=== PATIENT | female | born 1995 | race Caucasian/White ===

== ENCOUNTER 2018-03-29 19:45 | Observation (INO) ==
--- NOTE | 2018-03-29 21:58 | ED ---
HPI General Chief Complaint: Respiratory Symptoms Stated Complaint: respiratory Time Seen by Provider: 03/29/18 21:47 Source: patient Mode of arrival: ambulatory Limitations: no limitations History of Present Illness 23-year-old female complains of chest pain and shortness of breath. Patient states that she has intermittent shortness of breath for the past several weeks. Patient started having across anterior chest pressure with radiation to the neck today. Patient states that she has intermittent mild coughing congestion today. Patient denies any fever chills. Patient denies any history of COPD or asthma. Patient denies a history of CAD. Patient denies history hypertension, diabetes, hyperlipidemia. Patient is a non-smoker. Patient denies any illicit drug abuse. Patient is not on any control pills. Patient denies a history of DVT or PE. MD Complaint: shortness of breath and chest pain Onset (ago): day(s) Severity: moderate Consistency/Duration: intermittent Relieving factors: nothing Exacerbating factors: nothing Associated symptoms: chest pain Treatment prior to arrival: none Related Data Home Medications Medication Instructions Recorded Confirmed No Known Home Medications 03/29/18 03/29/18 Allergies Allergy/AdvReac Type Severity Reaction Status Date / Time strawberries Allergy Severe rash Uncoded 03/29/18 19:58 Review of Systems ROS: all other systems reviewed are negative PMFSH History History Provided By: Patient Medical History Medical History Medical history unknown (Acute) Surgical History Surgical History No history of previous surgery (Acute) Social History Social History Substance History: No History of Abuse Smoking Status: Never smoker How Often Do You Have a Drink Containing Alcohol: Never Recent Travel in [facility] within the Last 8 Weeks: No Recent Out of Country Travel within the Last 8 Weeks: No Exam Narrative Exam Narrative: GENERAL: Well-nourished, well-developed patient. SKIN: Focused skin assessment warm/dry. HEAD: Normocephalic. EYES: No scleral icterus. No injection or drainage. NECK: Supple, trachea midline. No JVD or lymphadenopathy. CARDIOVASCULAR: Regular rate and rhythm without murmurs, gallops, or rubs. RESPIRATORY: Breath sounds equal bilaterally. No accessory muscle use. GASTROINTESTINAL: Abdomen soft, non-tender, nondistended. MUSCULOSKELETAL: No cyanosis, or edema. BACK: Nontender without obvious deformity. No CVA tenderness. Course Initial Documented Vital Signs Temperature 98.3 F 03/29/18 19:53 Pulse Rate 87 03/29/18 19:53 Respiratory Rate 16 03/29/18 19:53 Blood Pressure 145/80 H 03/29/18 19:53 Pulse Oximetry 100 03/29/18 19:53 Last Documented Vital Signs Temperature 98.3 F 03/29/18 19:53 Pulse Rate 96 H 03/29/18 22:11 Respiratory Rate 16 03/29/18 22:11 Blood Pressure 120/81 03/29/18 22:11 Pulse Oximetry 100 03/29/18 22:11 Medical Decision Making MDM Narrative Medical decision making narrative: 23-year-old female with chest pain and shortness of breath and chest pain. 0015: This patient was signed out to me pending lab work and imaging studies. Briefly this is a 23-year-old female has been expressing shortness of breath for several weeks and chest pain for 1 day. Her EKG reveals normal sinus rhythm. Chest x-ray is normal. Lab work reveals potassium 3.4 otherwise unremarkable. D-dimer is negative. Dr. Juarez instructed that the patient be admitted to the chest pain center if her tests were negative. The patient is agreeable. Medical Screen Exam Complete: Yes Emergency Medical Condition: Yes Differential Diagnosis Differential Diagnosis: Differential diagnosis including musculoskeletal, reactive airway disease, angina, SC, PE, pneumothorax. Lab Data Result diagrams: 03/29/18 22:35 03/29/18 22:35 POC Results POC Urine Results Negative Lab Results 03/29/18 03/29/18 03/29/18 Range/Units 22:35 22:35 22:35 WBC 9.9 (4.0-11.0) th/mm3 RBC 4.21 (4.00-5.30) mil/mm3 Hgb 12.5 (11.6-15.3) gm/dL Hct 36.0 (35.0-46.0) % MCV 85.4 (80.0-100.0) fL MCH 29.6 (27.0-34.0) pg MCHC 34.7 (32.0-36.0) % RDW 14.3 (11.6-17.2) % Plt Count 259 (150-450) th/mm3 MPV 8.8 (7.0-11.0) fL Neut % (Auto) 56.8 (16.0-70.0) % Lymph % (Auto) 31.4 (9.0-44.0) % Barren % (Auto) 6.6 (0.0-8.0) % Eos % (Auto) 4.4 H (0.0-4.0) % Baso % (Auto) 0.8 (0.0-2.0) % Neut # (Auto) 5.6 (1.8-7.7) th/mm3 Lymph # (Auto) 3.1 (1.0-4.8) th/mm3 [place] # (Auto) 0.7 (0.0-0.9) th/mm3 Eos # (Auto) 0.4 (0.0-0.4) th/mm3 Baso # (Auto) 0.1 (0.0-0.2) th/mm3 WBC Differential . Differential Comment Auto diff final PT 10.2 (9.8-11.6) sec INR 1.0 Ratio APTT 27.2 (24.3-30.1) sec D-Dimer Quant (PE/DVT) 0.19 (0.00-0.50) mg/L FEU Sodium 140 (136-145) meq/L Potassium 3.4 L (3.5-5.1) meq/L Chloride 106 (98-107) meq/L Carbon Dioxide 23.5 (21.0-32.0) meq/L Anion Gap 11 (5-15) meq/L BUN 10 (7-18) mg/dL Creatinine 0.76 (0.50-1.00) mg/dL Estimated GFR Greater than 89 (>89) mL/min Random Glucose 91 (74-106) mg/dL Calcium 9.1 (8.5-10.1) mg/dL Total Bilirubin 0.5 (0.2-1.0) mg/dL AST 16 (15-37) U/L ALT 27 (10-53) U/L Alkaline Phosphatase 64 (45-117) U/L Total Creatine Kinase 99 (26-192) U/L Troponin I Less than 0.02 L (0.02-0.05) ng/mL Total Protein 7.8 (6.4-8.2) g/dL Albumin 3.8 (3.4-5.0) g/dL Imaging Data Radiologist's impression: Chest X-Ray 03/29/18 21:50 CONCLUSION: No acute cardiopulmonary process. Discharge Plan Discharge Disposition Patient Disposition: 30 Still Patient Discharge Condition Condition: Stable Discharge Details Diagnosis: Chest pain Physicians Team ED Provider: Adolfo Juarez ED Midlevel Provider: Roosevelt An Primary Care Provider: Hi Jameson Rxs /Orders / Referrals /Forms Prescriptions: No Action No Known Home Medications RF: 0 Status ED Status: With Doctor
--- NOTE | 2018-03-29 22:35 | XR ---
EXAM DATE: 03/29/2018 10:20 PM EDT AGE/SEX: 23 years / Female INDICATIONS: Shortness of breath. CLINICAL DATA: This is the patient's initial encounter. Patient reports that signs and symptoms have been present for 4 - 6 days and indicates a pain score of 0/10. MEDICAL/SURGICAL HISTORY: None. None. COMPARISON: [facility], CHEST SINGLE AP, 01/16/2011. . FINDINGS: A single AP view of the chest demonstrates the lungs to be symmetrically aerated without evidence of mass, infiltrate or effusion. The cardiomediastinal contours are unremarkable. Osseous structures a re intact. CONCLUSION: No acute cardiopulmonary process. Electronically signed by: Ivan Davies MD 03/29/2018 10:33 PM EDT
[2018-03-29 22:50] LABS: Baso # (Auto) 0.1 th/mm3 (0.0-0.2); Baso % (Auto) 0.8 % (0.0-2.0); Eos # (Auto) 0.4 th/mm3 (0.0-0.4); Eos % (Auto) 4.4 % (0.0-4.0); Hemoglobin 12.5 gm/dL (11.6-15.3); Lymph # (Auto) 3.1 th/mm3 (1.0-4.8); Lymph % (Auto) 31.4 % (9.0-44.0); Mean Corpuscular HGB Conc 34.7 % (32.0-36.0); Mean Corpuscular Hemoglobin 29.6 pg (27.0-34.0); Mean Corpuscular Volume 85.4 fL (80.0-100.0); Mean Platelet Volume 8.8 fL (7.0-11.0); Mono # (Auto) 0.7 th/mm3 (0.0-0.9); Mono % (Auto) 6.6 % (0.0-8.0); Neut # (Auto) 5.6 th/mm3 (1.8-7.7); Neut % (Auto) 56.8 % (16.0-70.0); Platelet Count 259 th/mm3 (150-450); Red Blood Count 4.21 mil/mm3 (4.00-5.30); Red Cell Distribution Width 14.3 % (11.6-17.2); White Blood Count 9.9 th/mm3 (4.0-11.0)
[2018-03-29 23:31] LABS: Activated Partial Thrombo Time 27.2 sec (24.3-30.1); Prothrombin Time 10.2 sec (9.8-11.6)
[2018-03-29 23:32] LABS: D-Dimer 0.19 mg/L FEU (0.00-0.50)
[2018-03-29 23:38] LABS: Albumin 3.8 g/dL (3.4-5.0); Anion Gap 11 meq/L (5-15); Aspartate Aminotransferase 16 U/L (15-37); Calcium 9.1 mg/dL (8.5-10.1); Carbon Dioxide 23.5 meq/L (21.0-32.0); Chloride 106 meq/L (98-107); Glomerular Filtration Rate Greater Than 89 mL/min (>89); Glucose,Random 91 mg/dL (74-106); Potassium 3.4 meq/L (3.5-5.1); Sodium 140 meq/L (136-145)
[2018-03-29 23:56] LABS: Alanine Aminotransferase 27 U/L (10-53); Alkaline Phosphatase 64 U/L (45-117); Blood Urea Nitrogen 10 mg/dL (7-18); Total Protein 7.8 g/dL (6.4-8.2)
[2018-03-30 00:04] LABS: Creatine Kinase 99 U/L (26-192)
[2018-03-30 03:00] LABS: Creatine Kinase 86 U/L (26-192)
[2018-03-30 04:20] VITALS: PULSE 75
[2018-03-30 06:07] LABS: Creatine Kinase 81 U/L (26-192)
[2018-03-30] MEDS ORDERED: Acetaminophen 500 MG Tablet PO PRN (07:21)
[2018-03-30 07:37] VITALS: BP 110/57; RESP 14; TEMP 98.6; O2SAT 97
--- NOTE | 2018-03-30 09:20 | P.HPCA ---
History of Present Illness Primary Care Physician: Hi Jameson MD Chief Complaint: Dysnea, chest tightness History of Present Illness: 23 year old female without significant medical history presents to ER further evaluation of chest tightness and dyspnea. Onset 2-3 weeks of dyspnea and 2 days of intermittent chest tightness. Experiencing shortness of breath after eating large meal, laying flat, or when talking quickly. States "it feels like when you are 9 months , like you can't take a deep breath." Over the last 2 days noticed exertional dyspnea while at work with accompanying substernal chest tightness. Yesterday at 7 pm developed episode of exertional dyspnea, substernal chest and throat tightness. Associated symptoms included "feeling her heart beat" and having to take a deep breath to catch breath. No associated symptoms of nausea, vomiting, irregular or racing heart beat, or diaphoresis. No precipitating or relieving factors. Duration 3 hours. Moderate in severity. 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 No current chest tightness or dyspnea. No known hypertension, diabetes, or hyperlipidemia. Lifelong non-smoker. Currently on menses. Denies similar discomfort in the past. No past cardiac testing. Experiences occasional ingestion without burning sensation, denies ever being diagnosed with acid reflex. Increase in weight of # 30 over the last year. 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 No recent illness, fever, or injury. - Diagnosis (1) Atypical chest pain (2) Dyspnea (3) Obesity (BMI 30.0-34.9) (4) Hypokalemia Review of Systems All other systems reviewed negative except as stated in HPI PMFSH - History History Provided By: Patient - Medical History Medical History: Medical History (Last Reviewed 03/29/18 @ 21:55 by Adolfo Juarez MD) Medical history unknown - Surgical History Surgical History: Surgical History (Last Updated 03/30/18 @ 09:07 by LUISA Huertas) History of eye surgery - Family History Family History: Family History (Last Updated 03/30/18 @ 09:10 by LUISA Huertas) Mother H/O four vessel coronary artery bypass graft Myocardial infarction Uncle Myocardial infarction Uncle Myocardial infarction Grandparent Myocardial infarction - Tobacco History Second Hand Smoke Exposure: No Tobacco Use In Past 30 Days: No Smoking Status: Never smoker - Alcohol History How Often Do You Have a Drink Containing Alcohol: Monthly or less - Substance Use History Substance History: No History of Abuse - Travel History Recent Travel in the [place] Within the Last 8 Weeks: No Recent Travel Out of the Country Within the Last 8 Weeks: No - Immunization History Tetanus Immunization: Unsure Hx Influenza Vaccine This Season: No Medications and Allergies Active Medications: Active Medications Acetaminophen (Tylenol) 500 mg PO Q4H PRN PRN Reason: HEADACHE Ondansetron HCl (Zofran Inj) 4 mg IV.PUSH Q6H PRN PRN Reason: NAUSEA Sodium Chloride (Ns Flush) 2 ml IV.FLUSH BID NIMESH Sodium Chloride (Ns Flush) 2 ml IV.FLUSH PRN PRN PRN Reason: FLUSH AFTER USING IV ACCESS Last Admin: 03/30/18 01:34 Dose: 2 ml Allergies Allergy/AdvReac Type Severity Reaction Status Date / Time strawberries Allergy Severe rash Uncoded 03/29/18 19:58 Home Medications Medication Instructions Recorded Confirmed Type No Known Home Medications 03/29/18 03/29/18 History Exam Vital signs: Vital Signs 03/29/18 19:53 03/29/18 22:11 03/30/18 00:00 Temperature 98.3 F Pulse Rate 87 96 H 65 Respiratory Rate 16 16 14 Blood Pressure 145/80 H 120/81 118/65 Pulse Oximetry 100 100 100 03/30/18 02:11 03/30/18 04:00 03/30/18 04:18 Temperature 97.7 F 97.9 F Pulse Rate 78 73 75 Respiratory Rate 18 18 Blood Pressure 114/60 95/53 L Pulse Oximetry 99 98 03/30/18 07:27 03/30/18 07:34 Temperature 98.6 F Pulse Rate 64 75 Respiratory Rate 14 Blood Pressure 110/57 L Pulse Oximetry 97 Intake & Output 03/29/18 03/30/18 03/30/18 18:59 06:59 18:59 Intake Total 0 / 0 Balance 0 / 0 Weight 95 kg Intake: Oral 0 / 0 Narrative: GENERAL: Alert WN, WD, NAD, very pleasant, obese female HEAD: NC, AT EYES: Sclera clear, conjunctiva without injection, pupils equal and round, right eye deviates outward ENT: Mucous membranes pink and moist, no nasal discharge or bleeding CV: RRR, without murmur, rub, gallop, no JVD, S1-S2 no S3-S4. RESP: Clear lungs throughout bilateral, no crackles, wheeze, rhonchi, symmetrical chest rise, nonlabored, able to speak in full sentences ABD: Soft, NT, ND, no masses, positive bowel tones, obese EXT: Pulses +2x4, no dependent edema MS: Normal tone x4 extremities, nontender, no obvious deformities, full range of motion NEURO: CN II through CN XII grossly intact, motor strength 5/5 PSYCH: A+O x3, pleasant affect, appropriate speech, appropriate mood, insight and judgment SKIN: Normal turgor, normal texture, no lesions, no rashes, brisk cap refill, even hair distribution Results 03/29/18 22:35 03/29/18 22:35 Cardiac Enzymes 03/29/18 03/30/18 03/30/18 Range/Units 22:35 01:32 04:50 AST 16 (15-37) U/L Troponin I Less than 0.02 L Less than 0.02 L Less than 0.02 L (0.02-0.05) ng/mL Coagulation 03/29/18 Range/Units 22:35 PT 10.2 (9.8-11.6) sec APTT 27.2 (24.3-30.1) sec CBC 03/29/18 Range/Units 22:35 WBC 9.9 (4.0-11.0) th/mm3 RBC 4.21 (4.00-5.30) mil/mm3 Hgb 12.5 (11.6-15.3) gm/dL Hct 36.0 (35.0-46.0) % Plt Count 259 (150-450) th/mm3 Neut # (Auto) 5.6 (1.8-7.7) th/mm3 Lymph # (Auto) 3.1 (1.0-4.8) th/mm3 [place] # (Auto) 0.7 (0.0-0.9) th/mm3 Eos # (Auto) 0.4 (0.0-0.4) th/mm3 Baso # (Auto) 0.1 (0.0-0.2) th/mm3 Comprehensive Metabolic Panel 03/29/18 Range/Units 22:35 Sodium 140 (136-145) meq/L Potassium 3.4 L (3.5-5.1) meq/L Chloride 106 (98-107) meq/L Carbon Dioxide 23.5 (21.0-32.0) meq/L BUN 10 (7-18) mg/dL Creatinine 0.76 (0.50-1.00) mg/dL Calcium 9.1 (8.5-10.1) mg/dL AST 16 (15-37) U/L ALT 27 (10-53) U/L Alkaline Phosphatase 64 (45-117) U/L Total Protein 7.8 (6.4-8.2) g/dL Albumin 3.8 (3.4-5.0) g/dL Intake and Output 03/29/18 03/30/18 03/30/18 22:59 06:59 14:59 Intake Total 0 / 0 Balance 0 / 0 Intake: Oral 0 / 0 Other: Weight 95.254 kg 95 kg EKG interpretations - EKG EKG results cardiology: sinus rhythm, normal axis, normal QRS, normal ST/T Caprini VTE Risk Assessment Caprini VTE Risk Assessment: No/Low Risk (score <= 1) Caprini Risk Assessment Model: Point Value = 1 Point Value = 2 Point Value = 3 Point Value = 5 Age 41-60 Minor surgery BMI > 25 kg/m2 Swollen legs Varicose veins or History of unexplained or recurrent spontaneous Oral contraceptives or hormone replacement Sepsis (< 1 month) Serious lung disease, including pneumonia (< 1 month) Abnormal pulmonary function Acute myocardial infarction Congestive heart failure (< 1 month) History of inflammatory bowel disease Medical patient at bed rest Age 61-74 Arthroscopic surgery Major open surgery (> 45 min) Laparoscopic surgery (> 45 min) Malignancy Confined to bed (> 72 hours) Immobilizing plaster cast Central venous access Age >= 75 History of VTE Family history of VTE Factor V Leiden Prothrombin [id number] Lupus anticoagulant Anticardiolipin antibodies Elevated serum homocysteine Heparin-induced thrombocytopenia Other congenital or acquired thrombophilia Stroke (< 1 month) Elective arthroplasty Hip, pelvis, or leg fracture Acute spinal cord injury (< 1 month) Prophylaxis Regimen: Total Risk Factor Score Risk Level Prophylaxis Regimen 0-1 Low Early ambulation 2 Moderate Order ONE of the following: *Sequential Compression Device (SCD) *Heparin 5000 units SQ BID 3-4 Higher Order ONE of the following medications: *Heparin 5000 units SQ TID *Enoxaparin/Lovenox 40 mg SQ daily (WT < 150 kg, CrCl > 30 mL/min) *Enoxaparin/Lovenox 30 mg SQ daily (WT < 150 kg, CrCl > 10-29 mL/min) *Enoxaparin/Lovenox 30 mg SQ BID (WT < 150 kg, CrCl > 30 mL/min) AND/OR *Sequential Compression Device (SCD) 5 or more Highest Order ONE of the following medications: *Heparin 5000 units SQ TID (Preferred with Epidurals) *Enoxaparin/Lovenox 40 mg SQ daily (WT < 150 kg, CrCl > 30 mL/min) *Enoxaparin/Lovenox 30 mg SQ daily (WT < 150 kg, CrCl > 10-29 mL/min) *Enoxaparin/Lovenox 30 mg SQ BID (WT < 150 kg, CrCl > 30 mL/min) AND *Sequential Compression Device (SCD) Assessment and Plan - Assessment (1) Atypical chest pain Code(s): R07.89 - Other chest pain Status: Acute Plan: Admitted to chest pain center. ACS ruled out with 3 sets of EKGs and cardiac enzymes. Will be seen and evaluated by Dr. Александр Hickey. Likely will proceed with exercise cardiac testing to evaluate reported exertional dyspnea. Verbalizes understanding and agreeable to arnold of care. Discussed in length importance of following up with PCP. Possible GI and emotional stress component , encouraged keeping a dairy of events around episodes to take with her to next PCP office visit. (2) Dyspnea Code(s): R06.00 - Dyspnea, unspecified Status: Acute Plan: No current dyspnea. D-dimer unremarkable. (3) Obesity (BMI 30.0-34.9) Code(s): E66.9 - Obesity, unspecified Status: Chronic Plan: Discussed in length weight loss methods, including keeping calorie intake diary , avoiding sugary drinks, and increasing daily activity. Time for questions and answers provided. (4) Hypokalemia Code(s): E87.6 - Hypokalemia Status: Acute Plan: 20 MeQ KCL given in Er. Made aware of mildly low potassium level. Follow up with PCP. H&P: Quality - VTE Deep Vein Thrombosis/Pulmonary Embolism Present on Admission: No (2) Dyspnea Qualifiers: Dyspnea type: unspecified Qualified Code(s): R06.00 - Dyspnea, unspecified
--- NOTE | 2018-03-30 11:19 | TR ---
Date Performed: 03/30/2018 Time Performed: 09:53:18 DOCTOR: Александр Hickey DRUG LIST: CLINICAL HISTORY: REASON FOR TEST: Chest pain REASON FOR ENDING: OBSERVATION: CONCLUSION: Jacob protocol completed. Stopped sec to exceeding target heart rate and leg fatigue . Maximum ET=202 Max HR Achieved=87.0% Total Exercise Time=8:03 Maximum UW=414/72. No reprod chest di scom[place]. Upsloping st segments. Good exercise tolerance. Infreq PVC at peak. Normal bp reponse. Diallo very quick and unremarkable. COMMENTS: Conclusion: Normal treadmill exercise. No evidence of ischemia.
--- NOTE | 2018-03-30 15:39 | ECG ---
Date Performed: 03/29/2018 Time Performed: 22:05:58 PTAGE: 23 years EKG: Sinus rhythm NORMAL ECG PREVIOUS TRACING : 03/29/2018 22.05 Since previous tracing, no significant change noted DOCTOR: Александр Hickey Interpretating Date/Time 03/30/2018 15:38:57
--- NOTE | 2018-03-30 15:39 | ECG ---
Date Performed: 03/30/2018 Time Performed: 01:27:18 PTAGE: 23 years EKG: Sinus rhythm WITH SINUS ARRHYTHMIA NORMAL ECG PREVIOUS TRACING : 03/30/2018 01.25 Since previous tracing, no significant change noted DOCTOR: Александр Hickey Interpretating Date/Time 04/01/2018 07:11:39
--- NOTE | 2018-03-30 15:40 | ECG ---
Date Performed: 03/30/2018 Time Performed: 04:32:16 PTAGE: 23 years EKG: Sinus rhythm NORMAL ECG PREVIOUS TRACING : 03/30/2018 01.27 DOCTOR: Александр Hickey Interpretating Date/Time 03/30/2018 15:39:23
== END 2018-03-30 13:01 | disposition home or self-care (01) ==
LOC: NEDA 19:45 → NEPD 19:45 → NEDA 03-30 01:53 → NEPFCDU 03-30 02:05